=== PATIENT | female | born 1985 | race American Indian/Alaskan Native ===

== ENCOUNTER 2020-03-10 21:16 | Emergency (ER) | payer OTHER ==
[2020-03-11] MEDS ORDERED: ACETAMINOPHEN 500 MG TAB PO ONE (01:04)
[2020-03-11 01:26] LABS: Basophils # (Auto) 0.1 K/mm3 (0.0-0.1); Eosinophils # (Auto) 0.1 K/mm3 (0.0-0.4); Eosinophils % (Auto) 2.1 % (0.0-4.3); Hematocrit 39.8 % (30.3-42.9); Hemoglobin 13.5 gm/dl (10.1-14.3); Lymphocytes # (Auto) 1.3 K/mm3 (1.2-5.4); Lymphocytes % (Auto) 19.4 % (13.4-35.0); Mean Corpuscular HGB Conc 34 % (30-34); Mean Corpuscular Volume 90 fl (79-97); Monocytes # (Auto) 0.7 K/mm3 (0.0-0.8); Monocytes % (Auto) 11.1 % (0.0-7.3); Platelet Count 374 K/mm3 (140-440); Red Blood Count 4.41 M/mm3 (3.65-5.03); Red Cell Distribution Width 14.1 % (13.2-15.2)
[2020-03-11 01:47] LABS: Alanine Aminotransferase 12 units/L (7-56); Albumin 4.6 g/dL (3.9-5); BUN/Creatinine Ratio 8; Blood Urea Nitrogen 5 mg/dL (7-17); Calcium 9.3 mg/dL (8.4-10.2); Hemolysis Index 10
--- NOTE | 2020-03-11 04:43 | Ultrasound Report ---
ULTRASOUND OBSTETRIC INDICATION / CLINICAL INFORMATION: Vaginal bleeding: . Clinical Gestational Age (GA): 8.1 weeks.days TECHNIQUE: Transabdominal and Transvaginal. COMPARISON: None available. FINDINGS: GESTATIONAL SAC: No intrauterine gestational sac identified. Tiny cystic area in the lower uterine se gment. YOLK SAC: Not visualized. EMBRYO/FETUS: Not visualized. Endometrial complex measures 6 mm in thickness. ADNEXA: No significant abnormality. FREE FLUID: None. ADDITIONAL FINDINGS: None. IMPRESSION: 1. No intrauterine identified. Clinical and laboratory correlation is recommended. Signer Name: Kalpana Ospina MD Signed: 03/11/2020 4:39 AM Workstation Name: [id number]
--- NOTE | 2020-03-11 04:59 | Emergency Department Report ---
ED Female HPI - General Chief complaint: Vaginal Bleeding Stated complaint: VAG BLEED POSS 8 WKS PREG Source: patient Mode of arrival: Ambulatory Limitations: No Limitations - History of Present Illness Initial comments: Patient is a A0 35-year-old -[place] female who is approximately 5 weeks gestation and who presents to the ED with complaint of acute onset pers istent suprapubic pressure and vaginal bleeding for 2 days. Patient states that in the last 8 hours the bleeding has worsened and she noticed that there were blood clots when she went to the bathroom to void urine 2 hours prior to arrival in the ED. Patient denies dizziness, syncope, chest pain, shortness of breath, fever, chills, dysuria, urinary frequency and urgency, nausea and vomiting, low back pain, vaginal discharge, sore throat or abdominal pain. MD Complaint: vaginal bleeding, pelvic pain -: Sudden, days(s) (2) Location: suprapubic, other (VAGINAL) Radiation: non-radiating Severity: moderate Severity scale (0 -10): 6 Quality: cramping, dull Consistency: constant Improves with: none Worsens with: none Are you Now?: Yes (Approximately 5 weeks gestation) Associated Symptoms: denies other symptoms, vaginal bleeding, abdominal pain (Suprapubic discomfort), hematuria. denies: vaginal discharge, nausea/vomiting, fever/chills, headaches, loss of appetite, dysuria, rash, seizure, shortness of breath, syncope, weakness - Related Data Sexually active: Yes : 1 Para: 0 A: 0 Previous Rx's Medication Instructions Recorded Last Taken Type Acetaminophen [Tylenol] 500 mg PO Q6HR PRN #30 tablet 03/11/20 Unknown Rx Amoxicillin/Potassium Clav 1 each PO Q12H #20 tablet 03/11/20 Unknown Rx [Augmentin 875-125 Tablet] Allergies Allergy/AdvReac Type Severity Reaction Status Date / Time cefaclor [From [facility]] Allergy Anaphylaxis Verified 03/10/20 21:19 ED Review of Systems ROS: Stated complaint: VAG BLEED POSS 8 WKS PREG Other details as noted in HPI Constitutional: denies: chills, fever Eyes: denies: eye pain, eye discharge, vision change ENT: denies: ear pain, throat pain Respiratory: denies: cough, shortness of breath, wheezing Cardiovascular: denies: chest pain, palpitations Endocrine: no symptoms reported Gastrointestinal: abdominal pain (Suprapubic discomfort). denies: nausea, diarrhea Genitourinary: hematuria, abnormal menses (Heavy vaginal bleeding). denies: urgency, dysuria, discharge Musculoskeletal: denies: back pain, joint swelling, arthralgia Skin: denies: rash, lesions Neurological: denies: headache, weakness, paresthesias Psychiatric: denies: anxiety, depression Hematological/Lymphatic: denies: easy bleeding, easy bruising ED Past Medical Hx - Past Medical History Hx Asthma: Yes - Social History Smoking Status: Never Smoker Substance Use Type: None, Alcohol - Medications Home Medications: Home Medications Medication Instructions Recorded Confirmed Last Taken Type Acetaminophen [Tylenol] 500 mg PO Q6HR PRN #30 tablet 03/11/20 Unknown Rx Amoxicillin/Potassium Clav 1 each PO Q12H #20 tablet 03/11/20 Unknown Rx [Augmentin 875-125 Tablet] ED Physical Exam - General Limitations: No Limitations General appearance: alert, in no apparent distress - Head Head exam: Present: atraumatic, normocephalic, normal inspection - Eye Eye exam: Present: normal appearance, EOMI Pupils: Present: normal accommodation - ENT ENT exam: Present: normal exam, normal orophraynx, mucous membranes moist, TM's normal bilaterally, normal external ear exam - Neck Neck exam: Present: normal inspection, full ROM - Respiratory Respiratory exam: Present: normal lung sounds bilaterally. Absent: respiratory distress, wheezes, rales, rhonchi, accessory muscle use, decreased breath sounds, prolonged expiratory, other - Cardiovascular Cardiovascular Exam: Present: normal rhythm, tachycardia, normal heart sounds. Absent: systolic murmur, diastolic murmur, rubs, gallop - GI/Abdominal GI/Abdominal exam: Present: soft, normal bowel sounds. Absent: tenderness, guarding, rebound, hyperactive bowel sounds, hypoactive bowel sounds, organomegaly - Bi-manual exam: Present: other (Pelvic exam deferred, patient choice) - Extremities Exam Extremities exam: Present: normal inspection, full ROM, normal capillary refill - Back Exam Back exam: Present: normal inspection, full ROM. Absent: tenderness, CVA tenderness (R), muscle spasm, paraspinal tenderness - Neurological Exam Neurological exam: Present: alert, oriented X3, CN II-XII intact, normal gait, reflexes normal - Psychiatric Psychiatric exam: Present: normal affect, normal mood - Skin Skin exam: Present: warm, dry, intact, normal color. Absent: rash ED Course Vital Signs 03/10/20 03/11/20 03/11/20 21:20 01:12 03:15 Temperature 99.8 F H 99.0 F Pulse Rate 107 H 90 Respiratory 18 18 18 Rate Blood Pressure 159/88 Blood Pressure 148/86 [Right] O2 Sat by Pulse 100 100 Oximetry ED Medical Decision Making - Lab Data Result diagrams: 03/11/20 01:13 03/11/20 01:13 - Radiology Data Radiology results: report reviewed, image reviewed Findings [facility] [address] [id number] Ultrasound Report Signed Patient: LASHAE MERRILL MR#: [id number] : 1985 Acct:[id number] Age/Sex: 35 / F ADM Date: 03/10/20 Loc: ED Attending Dr: Ordering Physician: SHELIA GALICIA Date of Service: 03/11/20 Procedure(s): US OB transvaginal Accession Number(s): [id number] cc: SHELIA GALICIA ULTRASOUND OBSTETRIC INDICATION / CLINICAL INFORMATION: Vaginal bleeding: . Clinical Gestational Age (GA): 8.1 weeks.days TECHNIQUE: Transabdominal and Transvaginal. COMPARISON: None available. FINDINGS: GESTATIONAL SAC: No intrauterine gestational sac identified. Tiny cystic area in the lower uterine segment. YOLK SAC: Not visualized. EMBRYO/FETUS: Not visualized. Endometrial complex measures 6 mm in thickness. ADNEXA: No significant abnormality. FREE FLUID: None. ADDITIONAL FINDINGS: None. IMPRESSION: 1. No intrauterine identified. Clinical and laboratory correlation is recommended. Signer Name: Kalpana Ospina MD Signed: 03/11/2020 4:39 AM Workstation Name: [id number] Transcribed By: DT Dictated By: Manish Ospina MD Electronically Authenticated By: Manish Ospina MD Signed Date/Time: 03/11/209 DD/ 6 TD/TT: Findings [facility] [address] [place] [address] Ultrasound Report Signed Patient: LASHAE MERRILL MR#: [id number] : 1985 Acct:[id number] Age/Sex: 35 / F ADM Date: 03/10/20 Loc: ED Attending Dr: Ordering Physician: SHELIA GALICIA Date of Service: 03/11/20 Procedure(s): US OB <= 14 weeks fetus Accession Number(s): [id number] cc: SHELIA GALICIA ULTRASOUND OBSTETRIC INDICATION / CLINICAL INFORMATION: Vaginal bleeding: . Clinical Gestational Age (GA): 8.1 weeks.days TECHNIQUE: Transabdominal and Transvaginal. COMPARISON: None available. FINDINGS: GESTATIONAL SAC: No intrauterine gestational sac identified. Tiny cystic area in the lower uterine segment. YOLK SAC: Not visualized. EMBRYO/FETUS: Not visualized. Endometrial complex measures 6 mm in thickness. ADNEXA: No significant abnormality. FREE FLUID: None. ADDITIONAL FINDINGS: None. IMPRESSION: 1. No intrauterine identified. Clinical and laboratory correlation is recommended. Signer Name: Kalpana Ospina MD Signed: 03/11/2020 4:39 AM Workstation Name: [id number] Transcribed By: DT Dictated By: Manish Ospina MD Electronically Authenticated By: Manish Ospina MD Signed Date/Time: 03/11/20438 DD/ 6 TD/TT: - Medical Decision Making This is A0 35-year-old -[place] female who is approximately 5 weeks gestation and who presented to the ED with acute onset persistent suprapubic discomfort and heavy vaginal bleeding. In the ED, patient is alert and oriented x3 and is not in distress but is tachycardic in triage. Patient was treated for pain with Tylenol 1 g p.o. x1. Lab test results were reviewed and are all nonactionable except for hCG quant of 235.9. The transvaginal ultrasound showed no intrauterine . Therefore clinical and laboratory correlation was recommended. Given the fact that the patient's hCG quant is 235.9 today, the may be too early to characterize on ultrasound. The patient however has had vaginal bleeding and there is a concern for threatened miscarriage or ec topic at this time. The patient expressed complaint of mild suprapubic pressure and discomfort but no pain. Therefore the patient shall be discharged home and be advised to return to the ED in 48 hours for serial hCG quant repeat to ascertain the viability of the , since it is expected that the hCG quant studies either double involved within 48 hours, for a viable or reduce by half within that time frame for a nonviable . Patient was meanwhile advised to maintain a complete pelvic rest devoid of heavy lifting or strenuous physical activities or sexual intercourse, and to return to the ED immediately if symptoms get worse. Patient was otherwise advised to return to the ED promptly within 48 hours for repeat of the hCG quant to ascertain the viability of the . - Differential Diagnosis Ectopic ; Threatened miscarriage; UTI; Ovarian cyst; Subchorionic Critical care attestation.: If time is entered above; I have spent that time in minutes in the direct care of this critically ill patient, excluding procedure time. ED Disposition Clinical Impression: Threatened miscarriage in early , Acute urinary tract infection Abdominal pain in Qualifiers: Trimester: first trimester Qualified Code(s): O26.891 - Other specified related conditions, first trimester Disposition: DC-01 TO HOME OR SELFCARE Is pt being admited?: No Does the pt Need Aspirin: No Condition: Stable Instructions: Threatened Miscarriage (ED), Abdominal Pain in (ED), Urinary Tract Infection in Women (ED) Additional Instructions: Maintain a complete pelvic rest devoid of any physical or strenuous activities or sexual intercourse. Take Tylenol as needed for pain. Return to the ED or to your established GRANULATOR MACHINE OPERATOR physician promptly in 48 hours for repeat of hCG quant studies to ascertain the viability of your . Otherwise return to the ED immediately if your symptoms get worse. Prescriptions: Acetaminophen [Tylenol] 500 mg PO Q6HR PRN #30 tablet PRN Reason: Pain , Severe (7-10) Amoxicillin/Potassium Clav [Augmentin 875-125 Tablet] 1 each PO Q12H #20 tablet Referrals: VIRGINIE BATISTA MD [Staff Physician] - 2-3 Days (RETURN TO THE ED OR TO YOUR [employer] CONT[employer] GRINDER PHYSICIAN WITHIN 48 HOURS FOR REPEAT OF YOUR HCG QUANT STUDIES TO ASCERTAIN THE VIABILITY OF YOUR ) Forms: Work/School Release Form(ED) Time of Disposition: 05:29 Print Language: GEORGIAN
[2020-03-11 05:21] LABS: Bilirubin,Urine NEG (Negative); Blood,Urine LG (Negative); Color,Urine Yellow (Yellow); Protein,Urine <15 mg/dL mg/dL (Negative); Urobilinogen,Urine < 2.0 mg/dL (<2.0)
[2020-03-11 05:27] LABS: RBC,Urine > 182.0 /HPF (0.0-6.0)
[2020-03-11] MEDS ORDERED: NITROFURANTOIN MONOHYD/M-CRYST 100 MG CAP PO ONE (05:35)
[2020-03-11 06:13] VITALS: BP 153/97
== END 2020-03-11 05:55 | disposition home or self-care (01) ==
LOC: ED 21:16
DX: O20.0 Threatened abortion (principal); O26.891 Other specified pregnancy related conditions, first trimester; O23.41 Unspecified infection of urinary tract in pregnancy, first trimester; O99.511 Diseases of the respiratory system complicating pregnancy, first trimester; J45.909 Unspecified asthma, uncomplicated; Z88.8 Allergy status to other drugs, medicaments and biological substances; Z3A.08 8 weeks gestation of pregnancy; Z79.899 Other long term (current) drug therapy
CPT/HCPCS: 36415; 76801; 76817; 80053; 81001; 83690; 84702; 84703; 85025; 86900; 86901; 87086

== ENCOUNTER 2020-03-13 09:48 | Emergency (ER) | payer OTHER ==
[2020-03-13 09:55] VITALS: BP 147/97
[2020-03-13 12:08] LABS: Hematocrit 38.9 % (30.3-42.9); Hemoglobin 12.8 gm/dl (10.1-14.3); Mean Corpuscular HGB Conc 33 % (30-34); Mean Corpuscular Volume 90 fl (79-97); Platelet Count 408 K/mm3 (140-440); Red Blood Count 4.32 M/mm3 (3.65-5.03); Red Cell Distribution Width 14.4 % (13.2-15.2)
--- NOTE | 2020-03-13 12:27 | Emergency Department Report ---
ED Recheck HPI - General Chief Complaint: Medical Clearance Stated Complaint: MISCARRAGE Time Seen by Provider: 03/13/20 10:58 Source: patient Mode of arrival: Ambulatory Limitations: No Limitations - History of Present Illness Initial Comments: This is a 35-year-old female nontoxic, well nourished in appearance, no acute signs of distress presents to the ED with c/o of vaginal bleeding xfew days. Patient was instructed to return to the ED for repeat quantitative test. Patient denies any pelvic pain. Patient stated significant decrease of vaginal bleeding. Stated but goes about 1 pad in the past 24 hours.. Patient denies any abdominal or pelvic pain. Patient denies any vaginal discharge or foul odor. Patient denies any nausea, vomiting, chest pain, shortness of breathe, fever, chills, headache, stiff neck, numbness, tingling. Patient denies any urinary symptoms. -: days(s) Symptoms Since Prior Visit: no new symptoms, improved Context: planned re-check Associated Symptoms: none. denies: fever, chills, chest pain, shortness of breath, rash, malaise, nasuea, abdominal pain - Related Data Previous Rx's Medication Instructions Recorded Last Taken Type Acetaminophen [Tylenol] 500 mg PO Q6HR PRN #30 tablet 03/11/20 Unknown Rx Amoxicillin/Potassium Clav 1 each PO Q12H #20 tablet 03/11/20 Unknown Rx [Augmentin 875-125 Tablet] Allergies Allergy/AdvReac Type Severity Reaction Status Date / Time cefaclor [From [facility]] Allergy Anaphylaxis Verified 03/10/20 21:19 ED Review of Systems ROS: Stated complaint: MISCARRAGE Other details as noted in HPI Constitutional: denies: chills, fever Eyes: denies: eye pain, eye discharge, vision change ENT: denies: ear pain, throat pain Respiratory: denies: cough, shortness of breath, wheezing Cardiovascular: denies: chest pain, palpitations Endocrine: no symptoms reported Gastrointestinal: denies: abdominal pain, nausea, diarrhea Genitourinary: abnormal menses. denies: urgency, dysuria, discharge Musculoskeletal: denies: back pain, joint swelling, arthralgia Skin: denies: rash, lesions Neurological: denies: headache, weakness, paresthesias Psychiatric: denies: anxiety, depression Hematological/Lymphatic: denies: easy bleeding, easy bruising ED Past Medical Hx - Past Medical History Previous Medical History?: Yes Hx Asthma: Yes - Surgical History Past Surgical History?: No - Social History Smoking Status: Never Smoker Substance Use Type: Alcohol - Medications Home Medications: Home Medications Medication Instructions Recorded Confirmed Last Taken Type Acetaminophen [Tylenol] 500 mg PO Q6HR PRN #30 tablet 03/11/20 Unknown Rx Amoxicillin/Potassium Clav 1 each PO Q12H #20 tablet 03/11/20 Unknown Rx [Augmentin 875-125 Tablet] ED Physical Exam - General Limitations: No Limitations General appearance: alert, in no apparent distress - Head Head exam: Present: atraumatic, normocephalic - Neck Neck exam: Present: normal inspection, full ROM - Extremities Exam Extremities exam: Present: normal inspection, full ROM - Back Exam Back exam: Present: normal inspection, full ROM - Neurological Exam Neurological exam: Present: alert, oriented X3, normal gait - Psychiatric Psychiatric exam: Present: normal affect, normal mood - Skin Skin exam: Present: warm, dry, intact, normal color. Absent: rash ED Course Vital Signs 03/13/20 09:53 Temperature 98.8 F Pulse Rate 100 H Respiratory 20 Rate Blood Pressure 147/97 O2 Sat by Pulse 99 Oximetry - Reevaluation(s) Reevaluation #1: 03/13/20 12:25 Patient is speaking in full sentences with no signs of distress noted. ED Recheck MDM - Medical Decision Making This is a 35-year-old female presents with spontaneous miscarriage. Patient is stable and was examined by me. Normal abdominal exam. Quantative serum test obtained and has decreased since last visit. Patient was instructed f/u with CENTRAL CONTROL ROOM OPERATOR in 3-5 days. Labs within normal limits. At time of discharge, the patient does not seem toxic or ill in appearance. No acute signs of distress noted. Patient agrees to discharge treatment plan of care. No further questions noted by the patient. Critical care attestation.: If time is entered above; I have spent that time in minutes in the direct care of this critically ill patient, excluding procedure time. ED Disposition Clinical Impression: Spontaneous miscarriage Disposition: DC-01 TO HOME OR SELFCARE Is pt being admited?: No Does the pt Need Aspirin: No Condition: Stable Instructions: Spontaneous Miscarriage (ED) Additional Instructions: Follow-up with a CENTRAL CONTROL ROOM OPERATOR doctor in 3-5 days or if symptoms worsen and continue return to emergency room as soon as possible. Referrals: PRIMARY CARE, [Primary Care Provider] - 3-5 Days NIKOLAY BANG MD [Staff Physician] - 3-5 Days [facility] [Provider Group] - 3-5 Days
== END 2020-03-13 12:48 | disposition home or self-care (01) ==
LOC: ED 09:48
DX: O03.9 Complete or unspecified spontaneous abortion without complication (principal); J45.909 Unspecified asthma, uncomplicated; Z79.899 Other long term (current) drug therapy; Z88.8 Allergy status to other drugs, medicaments and biological substances
CPT/HCPCS: 36415; 84702; 85027; 99283